=== PATIENT | female | born 1990 | race African-American/Black ===

== ENCOUNTER 2017-09-01 19:11 | Emergency (ER) | payer SELFPAY ==
[2017-09-01 19:30] VITALS: BP 119/74
[2017-09-01] MEDS ORDERED: Acetaminophen TAB* 325 MG PO ONE (21:04)
[2017-09-01] MEDS ORDERED: Polymyx/Trimethoprim OPTH* 10 ML BTL RIGHT EYE ONE (21:05)
--- NOTE | 2017-09-01 21:09 | UC ---
Ban Cummings Emily, scribed for Katie Lora MD on 09/01/17 at 205 . Shoulder Pain HPI - HPI Summary HPI Summary: This patient is a 27 year old F presenting to urgent care with 2 complaints. 1) R shoulder pain that began 1 week ago. The patient rates the pain 7/10 in severity. Symptoms aggravated by movement. Symptoms alleviated by Tylenol. Pt states she slept on her arm. pt states pain increases with movement. No paresthesia, no weakness. Pt is RHD. Pt denies elbow, wrist pain. No direct trauma. No back or neck pain 2_ Pt states right eye became irritated earlier today. STates became red and had swelling. Pt states this has improved but still feels "swollen." No vision changes. clear drainage. Pt denies nelson, vision change. Pt states uses fake eyelashes and may have "gotten something in her eye." No photophobia. No foreign body sensation. pt states washed eye with visine when started. Patient's medications reviewed this visit. - History of Current Complaint Chief Complaint: UCUpperExtremity Stated Complaint: EYE AND SHOULDER Time Seen by Provider: 09/01/17 20:35 Hx Obtained From: Patient Hx Last Menstrual Period: NOW Onset/Duration: Sudden Onset, Lasting Weeks, Still Present Timing: Constant Severity Initially: Severe Severity Currently: Severe Pain Intensity: 9 Pain Scale Used: 0-10 Numeric Character: Stiffness Aggravating Factor(s): Movement, Lifting, Flexion, Extension Alleviating Factor(s): OTC Meds Associated Signs And Symptoms: Negative: Weakness, Numbness/Tingling Related History: Dominant Hand Right - Allergies/Home Medications Allergies/Adverse Reactions: Allergies Allergy/AdvReac Type Severity Reaction Status Date / Time Penicillin V Allergy Severe Hives Verified 09/01/17 19:30 [From Penicillin VK Potassium] Home Medications: Home Medications Ibuprofen TAB* [Advil TAB*] 400 mg PO ONCE PRN 09/01/17 [History Confirmed 09/01] PMH/Surg Hx/FS Hx/Imm Hx Previously Healthy: No Other Cardiovascular History: Negative HTN Respiratory History: Asthma Other History Of: Negative For: Anticoagulant Therapy - Surgical History Surgical History: None - Family History Known Family History: Positive: None Negative: Cardiac Disease, Hypertension, Diabetes - Social History Occupation: Student Lives: With Family Alcohol Use: None Substance Use Type: None Smoking Status (MU): Former Smoker Type: Cigarettes Amount Used/How Often: once a month Have You Smoked in the Last Year: Yes When Did the Patient Quit Smoking/Using Tobacco: 8 mos ago - Immunization History Most Recent Influenza Vaccination: none Most Recent Tetanus Shot: 06/30/14 Most Recent Pneumonia Vaccination: none Review of Systems Constitutional: Other - Negative fever and chills Eyes: Drainage, Eye Redness ENT: Negative Respiratory: Negative Cardiovascular: Negative Musculoskeletal: Other: - Positive R shoulder pain Neurological: Other - Negative numbness or weakness All Other Systems Reviewed And Are Negative: Yes Physical Exam Triage Information Reviewed: Yes Appearance: Well-Appearing, No Pain Distress, Well-Nourished Vital Signs: Initial Vital Signs Temp 99.5 F 09/01/17 19:26 Pulse 89 09/01/17 19:26 Resp 20 09/01/17 19:26 BP 119/74 09/01/17 19:26 Pulse Ox 100 09/01/17 19:26 Vital Signs Reviewed: Yes Eyes: Positive: Conjunctiva Inflamed, Other: - CLEOPATRA, EOM intact and full + injected conjunctiva clear drainage no photophobia crisp fundoscopic exam ENT Exam: Normal ENT: Positive: Normal ENT inspection, Hearing grossly normal, Pharynx normal, TMs normal Dental Exam: Normal Neck exam: Normal Neck: Positive: Supple, Nontender, No Lymphadenopathy Respiratory Exam: Normal Respiratory: Positive: Chest non-tender, Lungs clear, Normal breath sounds, No respiratory distress, No accessory muscle use Cardiovascular Exam: Normal Cardiovascular: Positive: RRR, No Murmur, Pulses Normal Abdominal Exam: Normal Abdomen Description: Positive: Nontender, No Organomegaly, Soft Bowel Sounds: Positive: Present Musculoskeletal: Positive: Other: - No pain c/t/l/s Full AROM c spine + TTP right anterior shoulder at insertion + abduction >90 with PROM - somewhat limited second to pain + extension >90 with PROM- limited second to pain with active + external and internal rotation + flex/ext elbow + pronate/supinate Neurological Exam: Normal Neurological: Positive: Alert, Other: - + thumb up, a ok, finger spread, finger cross 5/5 grasp + gross sensation throughout Psychological Exam: Normal Psychological: Positive: Normal Response To Family Skin Exam: Normal Shoulder Course/Dx - Course Assessment/Plan: pt with right anterior shoulder discomfort - increased with ROM - point tender with directl pain over tendon insertion -. reviewed with pt. motrin/apap. ice. sling - shoulder and elbow exercises demonstrated. school note. 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 pf comfortable and in agreement with plan - Differential Dx/Diagnosis Provider Diagnoses: right shoulder tendonitis. conjunctivitis Discharge - Discharge Plan Condition: Stable Disposition: HOME Patient Education Materials: Tendinitis (ED), Conjunctivitis (ED) Forms: *School Release Referrals: [facility] [place] [facility] [Outside] - 1 Day Additional Instructions: - wear sling for comfort - remove your arm out of sling 3 times a day - make small circles with your shoulder and bend/straighten your elbow as demonstrated in the urgent care - apply ice (wrapped in a towel) 20 minutes at a time, 2-3 times a day - Okay to alternate ibuprofen (Advil, motrin) and tylenol every 3 hours for pain. TAke with food. Do NOT take for more than 4-5 days - for your eye - apply eye drops as instructed - apply warm, wet wash cloth 2- 3times a day - try not to rub your eye - contact the physician referral center to arrange a follow-up appointment The documentation as recorded by the Ban myles Emily accurately reflects the service I personally performed and the decisions made by me, Katie Lora MD.
== END 2017-09-01 21:38 | disposition home or self-care (01) ==
LOC: UCEAST 19:11
DX: M75.91 Shoulder lesion, unspecified, right shoulder (principal); H10.9 Unspecified conjunctivitis; J45.909 Unspecified asthma, uncomplicated; Z87.891 Personal history of nicotine dependence; Z88.0 Allergy status to penicillin
CPT/HCPCS: 99213; A9270-GY; G0463

== ENCOUNTER 2018-02-28 12:04 | Emergency (ER) | payer OTHER ==
[2018-02-28 12:31] VITALS: BP 134/62
--- NOTE | 2018-02-28 12:35 | UC ---
Hand/Wrist HPI - HPI Summary HPI Summary: Pt presents with growth to right dorsal wrist. She tells me that she has a history of ganglion cysts many years ago that were drained as she did not want them removed. For the last month she has had an increasingly painful and enlarged cyst on her right wrist. Denies injury, numbness, tingling. She works at [employer] - uses her hands often. - History Of Current Complaint Chief Complaint: UCUpperExtremity Stated Complaint: WOUND ON HAND Time Seen by Provider: 02/28/18 12:35 Hx Obtained From: Patient Hx Last Menstrual Period: unknown, had implant Onset/Duration: Gradual Onset Severity Initially: Severe Severity Currently: Severe Pain Intensity: 8 Pain Scale Used: 0-10 Numeric Character Of Pain: Dull, Aching Aggravating Factor(s): Movement - Allergies/Home Medications Allergies/Adverse Reactions: Allergies Allergy/AdvReac Type Severity Reaction Status Date / Time penicillin V Allergy Hives Verified 02/28/18 12:31 PMH/Surg Hx/FS Hx/Imm Hx Previously Healthy: Yes Respiratory History: Asthma Other History Of: Negative For: Anticoagulant Therapy - Surgical History Surgical History: None - Family History Known Family History: Positive: None Negative: Cardiac Disease, Hypertension, Diabetes - Social History Occupation: Employed Full-time Lives: With Family Alcohol Use: Occasionally Substance Use Type: None Smoking Status (MU): Former Smoker Type: Cigarettes Amount Used/How Often: once a month Have You Smoked in the Last Year: Yes When Did the Patient Quit Smoking/Using Tobacco: 8 mos ago - Immunization History Most Recent Influenza Vaccination: none Most Recent Tetanus Shot: 06/30/14 Most Recent Pneumonia Vaccination: none Review of Systems Constitutional: Negative Skin: Other - Cyst right wrist Respiratory: Negative Cardiovascular: Negative Neurovascular: Negative Musculoskeletal: Negative Neurological: Negative Psychological: Negative All Other Systems Reviewed And Are Negative: Yes Physical Exam - Summary Physical Exam Summary: GENERAL: NAD. WDWN. No pain distress. SKIN: No rashes, sores, ulcers, masses, lesions. NECK: Supple. Nontender. No lymphadenopathy. CHEST: CTAB. No r/r/w. No accessory muscle use. Breathing comfortably and in no distress. CV: RRR. Without m/r/g. Pulses intact radial and ulnar. MSK: Right wrist: dorsal aspect has 1.0cm cystic appearing nodule. Mild TTP over right wrist cyst. Strength 5/5 including electrician locomotive strength. No edema or obvious bony deformities. NEURO: Alert. Sensations intact hand and all fingers. PSYCH: Age appropriate behavior. Triage Information Reviewed: Yes Vital Signs: Initial Vital Signs Temp 98.3 F 02/28/18 12:27 Pulse 91 02/28/18 12:27 Resp 16 02/28/18 12:27 BP 134/62 02/28/18 12:27 Pulse Ox 100 02/28/18 12:27 Hand/Wrist Course/Dx - Course Course Of Treatment: Right wrist cyst. Refer to ortho - Differential Dx/Diagnosis Provider Diagnoses: Right wrist cyst Discharge - Sign-Out/Discharge Documenting (check all that apply): Discharge - Discharge Plan Condition: Stable Disposition: HOME Patient Education Materials: Ganglion Cysts (ED) Forms: *Work Release Referrals: Natalie Andres MD [Primary Care Provider] - Nusrat Ortega MD [Medical Doctor] - As Soon As Possible Additional Instructions: If you develop a fever, shortness of breath, chest pain, new or worsening symptoms - please call your PCP or go to the ED. - Billing Disposition and Condition Condition: STABLE Disposition: HOME
== END 2018-02-28 12:44 | disposition home or self-care (01) ==
LOC: UCEAST 12:04
DX: L72.3 Sebaceous cyst (principal); J45.909 Unspecified asthma, uncomplicated; Z88.0 Allergy status to penicillin; Z87.891 Personal history of nicotine dependence
CPT/HCPCS: 99211; G0463

== ENCOUNTER 2018-06-13 08:38 | Emergency (ER) | payer OTHER ==
--- NOTE | 2018-06-13 08:56 | UC ---
Skin Complaint HPI - HPI Summary HPI Summary: Pt is a 28 y/o F presenting w/ a skin rash on her left breast, left buttock, right heel, and left leg on bush. She reports having Sx for, "a while" and denies pain. Pt notes having similar Sx in the past and has been putting lotion on skin rashes. - History of Current Complaint Time Seen by Provider: 06/13/18 08:47 Stated Complaint: RASH Hx Obtained From: Patient Hx Last Menstrual Period: unknown, had implant Onset/Duration: Lasting Days - "a while ago" Timing: Constant Current Severity: None - denies pain Pain Intensity: 0 Pain Scale Used: 0-10 Numeric - 0/10 Location: Foot (Right) - by achilles tendon, Other - left breast, left buttock Aggravating Factor(s): Nothing Alleviating Factor(s): Nothing - Allergy/Home Medications Allergies/Adverse Reactions: Allergies Allergy/AdvReac Type Severity Reaction Status Date / Time penicillin V Allergy Hives Verified 06/13/18 09:10 Review of Systems Constitutional: Other - NEGATIVE: fever Musculoskeletal: Other: - skin rash on right heel, left buttock, left breast, left leg on bush All Other Systems Reviewed And Are Negative: Yes PMH/Surg Hx/FS Hx/Imm Hx Endocrine History: Other Other Endocrine History: NEGATIVE: thyroid disease, diabetes Cardiovascular History: Other Other Cardiovascular History: NEGATIVE: HTN Other Respiratory History: NEGATIVE: COPD, asthma GI/ History: Other Other GI/ History: NEGATIVE: ulcers Other History Of: Negative For: HIV, Hepatitis B, Hepatitis C, Anticoagulant Therapy - Surgical History Surgical History: None - Family History Known Family History: Negative: Cardiac Disease, Hypertension, Diabetes - Social History Alcohol Use: Occasionally Substance Use Type: None Smoking Status (MU): Former Smoker Type: Cigarettes Amount Used/How Often: once a month Have You Smoked in the Last Year: Yes When Did the Patient Quit Smoking/Using Tobacco: 8 mos ago - Immunization History Most Recent Influenza Vaccination: none Most Recent Tetanus Shot: 06/30/14 Most Recent Pneumonia Vaccination: none Physical Exam - Summary Physical Exam Summary: General: well-appearing, no pain distress Skin: Warm, color reflects adequate perfusion, dry. Skin lesion, patch, 2 cm oval with scaling edges on upper left brest, left buttock, left lower leg. Right Achilles tendon, linear crusting lesion of multiple 5 cm diameter raised areas, no drainage and erythema Head: normal Eyes: EOMI, CLEOPATRA ENT: normal Neck: supple, nontender Respiratory: CTA, breath sounds present Cardiovascular: RRR Abdomen: soft, nontender Bowel: present Musculoskeletal: normal, strength/ROM intact Neurological: sensory/motor intact, A&O x3 Psychological: affect/mood appropriate Triage Information Reviewed: Yes Vital Signs: Initial Vital Signs Temp 97.9 F 06/13/18 09:10 Pulse 84 06/13/18 09:10 Resp 18 06/13/18 09:10 BP 122/73 06/13/18 09:10 Pulse Ox 99 06/13/18 09:10 Vital Signs Reviewed: Yes Course/Dx - Diagnoses Provider Diagnoses: RING WORM. RASH Discharge - Sign-Out/Discharge Documenting (check all that apply): Patient Departure - Discharge Plan Condition: Stable Disposition: HOME Prescriptions: Clotrimazole 1 applic TOPICAL BID #28.4 gm Mupirocin 1 applic TOPICAL TID #22 gm Patient Education Materials: Tinea Corporis (ED), Acute Rash (ED) Referrals: [facility] [place] [facility] [place]] Natalie Andres MD [Primary Care Provider] - Additional Instructions: FOLLOW UP WITH YOUR DOCTOR. GET RECHECKED FOR ANY WORSENING OF YOUR CONDITION OR QUESTIONS OR CONCERNS. - Billing Disposition and Condition Condition: STABLE Disposition: Home
[2018-06-13 09:13] VITALS: BP 122/73
== END 2018-06-13 09:10 | disposition home or self-care (01) ==
LOC: UCEAST 08:38
DX: B35.9 Dermatophytosis, unspecified (principal); R21 Rash and other nonspecific skin eruption; Z88.0 Allergy status to penicillin; Z87.891 Personal history of nicotine dependence
CPT/HCPCS: 99212; G0463

== ENCOUNTER 2018-07-26 13:08 | Emergency (ER) | payer OTHER ==
[2018-07-26 13:25] VITALS: BP 112/69
[2018-07-26] MEDS ORDERED: Ketorolac INJ* 60 MG/2 ML VIAL IM ONE (13:41)
--- NOTE | 2018-07-26 13:47 | UC ---
Back Pain HPI - HPI Summary HPI Summary: This patient is a 28 year old F presenting to [facility] care accompanied by daughter with a chief complaint of left-sided back pain that began one week ago. The patient rates the pain 10/10 in severity. Symptoms aggravated by standing and movement. Symptoms alleviated by stretching and warm compresses. Patient denies dysuria, urinary frequency, diarrhea, and vaginal discharge. She reports a history of a back sprain with similar symptoms. - History of Current Complaint Chief Complaint: UCBackPain Stated Complaint: BACK PAIN Time Seen by Provider: 07/26/18 13:26 Hx Obtained From: Patient Hx Last Menstrual Period: irreg. ?: No Onset/Duration: Sudden Onset, Lasting Weeks, Still Present Timing: Constant Severity Initially: Severe Severity Currently: Severe Pain Intensity: 10 Pain Scale Used: 0-10 Numeric Back Pain: Is Discrete @ - Left-side Aggravating Factor(s): Movement, Other - Standing Alleviating Factor(s): Heat, Other - Stretching Associated Signs And Symptoms: Positive: Other - Negative dysuria, urinary frequency, diarrhea, and vaginal discharge. - Allergies/Home Medications Allergies/Adverse Reactions: Allergies Allergy/AdvReac Type Severity Reaction Status Date / Time Penicillins Allergy Hives Verified 07/26/18 13:16 PMH/Surg Hx/FS Hx/Imm Hx Previously Healthy: No Endocrine History: Other Other Endocrine History: Negative thyroid disease Respiratory History: Asthma Other History Of: Negative For: HIV, Hepatitis B, Hepatitis C, Anticoagulant Therapy - Surgical History Surgical History: None - Family History Known Family History: Negative: Cardiac Disease, Hypertension, Diabetes - Social History Occupation: Employed Full-time Lives: With Family Alcohol Use: None Substance Use Type: None Smoking Status (MU): Former Smoker Type: Cigarettes Amount Used/How Often: once a month Have You Smoked in the Last Year: Yes When Did the Patient Quit Smoking/Using Tobacco: 8 mos ago - Immunization History Most Recent Influenza Vaccination: none Most Recent Tetanus Shot: 06/30/14 Most Recent Pneumonia Vaccination: none Review of Systems Gastrointestinal: Other - Negative diarrhea Genitourinary: Other - Negative dysuria, frequency, and vaginal discharge Musculoskeletal: Other: - Positive back pain All Other Systems Reviewed And Are Negative: Yes Physical Exam - Summary Physical Exam Summary: General: well-appearing, no pain distress Skin: warm, color reflects adequate perfusion, dry Head: normal Eyes: EOMI, CLEOPATRA ENT: normal Neck: supple, nontender Respiratory: CTA, breath sounds present Cardiovascular: RRR Abdomen: soft, nontender Bowel: present Musculoskeletal: strength/ROM intact, Tender to palpation left, lateral, lower back. Pain with standing up straight. Neurological: sensory/motor intact, A&O x3 Psychological: affect/mood appropriate Triage Information Reviewed: Yes Vital Signs: Initial Vital Signs Temp 99.5 F 07/26/18 13:17 Pulse 67 07/26/18 13:17 Resp 18 07/26/18 13:17 BP 112/69 07/26/18 13:17 Pulse Ox 99 07/26/18 13:17 Vital Signs Reviewed: Yes Re-Evaluation - Re-Evaluation First Eval Re-Evaluation Time: 13:56 Change: Unchanged Comment: Discussed results and plan of care with pt Back Pain Course/Dx - Course Course Of Treatment: LOW BACK PAIN IS PROBABLE MUSCULOSKELETAL STRAIN; RX IBUPROFEN, MUSCLE RELAXERS AND STRETCHES. NO UTI SX, POSITIVE HEMATURIA AND PYURIA; WILL RX BACTRIM. NO CT AVAILABLE IN CLINIC TODAY TO EVALUATE LEFT FLANK FOR KIDNEY STONE. NO HX KIDNEY STONE, NO DYSURIA, NO ABD PAIN, PAIN WORSE WITH MOVEMENT SO, KIDNEY STONE LESS LIKELY. I DISCUSSED THAT AN UTI AND KIDNEY STONE CAN BE DANGEROUS AND SHE NEEDS TO GO IMMEDIATELY TO THE ED IF HER CONDITION WORSENS. THE PATIENT AGREES. - Differential Dx/Diagnosis Provider Diagnoses: LOW BACK PAIN. LEFT FLANK PAIN. HEMATURIA. PYURIA Discharge - Sign-Out/Discharge Documenting (check all that apply): Patient Departure All imaging exams completed and their final reports reviewed: No Studies - Discharge Plan Condition: Stable Disposition: HOME Prescriptions: Cyclobenzaprine TAB* [Flexeril 10 MG TAB*] 10 mg PO TID PRN #15 tab MDD 3 PRN Reason: Pain Ibuprofen TAB* [Motrin TAB* 600 MG] 600 mg PO Q6H PRN #30 tab PRN Reason: Pain Sulfamethox/Trimethoprim DS* [Bactrim DS 800/160 TAB*] 1 tab PO BID #20 tab Patient Education Materials: Urinary Tract Infection in Women (ED), Acute Low Back Pain (ED), Flank Pain (ED), Lower Back Exercises (ED) Referrals: Natalie Andres MD [Primary Care Provider] - Additional Instructions: FOLLOW UP WITH YOUR DOCTOR. IF YOUR PAIN DOES NOT IMPROVE OR WORSENS, YOU WILL NEED TO BE CHECKED FOR A KIDNEY STONE WITH A CT SCAN. THIS CAN BE DONE AT THE EMERGENCY DEPARTMENT. IF YOU HAVE BOTH A UTI AND A KIDNEY STONE, YOU CAN BECOME DANGEROUSLY ILL VERY QUICKLY SO, IF YOU FEEL ILL, GO DIRECTLY TO THE EMERGENCY DEPARTMENT. GO TO THE EMERGENCY DEPARTMENT FOR ANY WORSENING OF YOUR CONDITION; FEVER, PAIN , YOU FEEL ILL OR QUESTIONS OR CONCERNS. - Billing Disposition and Condition Condition: STABLE Disposition: Home - Attestation Statements Document Initiated by Scribe: Yes Documenting Scribe: Karie Cevallos Provider For Whom Scribe is Documenting (Include Credential): Alexi Salinas MD Scribe Attestation: I, Karie Cevallos, scribed for Alexi Salinas MD on 07/26/18 at 1424. Scribe Documentation Reviewed: Yes Provider Attestation: The documentation as recorded by the scribeKarie accurately reflects the service I personally performed and the decisions made by me, Alexi Salinas MD
--- NOTE | 2018-07-28 15:44 | UC ---
- Progress Note Progress Note: please notify pt no UTI Stop antibiotic Re-Evaluation - Re-Evaluation First Eval Re-Evaluation Time: 13:56 Change: Unchanged Comment: Discussed results and plan of care with pt Discharge - Sign-Out/Discharge Documenting (check all that apply): Post-Discharge Follow Up All imaging exams completed and their final reports reviewed: No Studies - Discharge Plan Condition: Stable Disposition: HOME Prescriptions: Cyclobenzaprine TAB* [Flexeril 10 MG TAB*] 10 mg PO TID PRN #15 tab MDD 3 PRN Reason: Pain Ibuprofen TAB* [Motrin TAB* 600 MG] 600 mg PO Q6H PRN #30 tab PRN Reason: Pain Sulfamethox/Trimethoprim DS* [Bactrim DS 800/160 TAB*] 1 tab PO BID #20 tab Patient Education Materials: Urinary Tract Infection in Women (ED), Acute Low Back Pain (ED), Flank Pain (ED), Lower Back Exercises (ED) Referrals: Natalie Andres MD [Primary Care Provider] - Additional Instructions: FOLLOW UP WITH YOUR DOCTOR. IF YOUR PAIN DOES NOT IMPROVE OR WORSENS, YOU WILL NEED TO BE CHECKED FOR A KIDNEY STONE WITH A CT SCAN. THIS CAN BE DONE AT THE EMERGENCY DEPARTMENT. IF YOU HAVE BOTH A UTI AND A KIDNEY STONE, YOU CAN BECOME DANGEROUSLY ILL VERY QUICKLY SO, IF YOU FEEL ILL, GO DIRECTLY TO THE EMERGENCY DEPARTMENT. GO TO THE EMERGENCY DEPARTMENT FOR ANY WORSENING OF YOUR CONDITION; FEVER, PAIN , YOU FEEL ILL OR QUESTIONS OR CONCERNS. - Billing Disposition and Condition Condition: STABLE Disposition: Home
== END 2018-07-26 14:26 | disposition home or self-care (01) ==
LOC: UCEAST 13:08
DX: M54.5 Low back pain (principal); Z88.0 Allergy status to penicillin; Z87.891 Personal history of nicotine dependence; R10.9 Unspecified abdominal pain; R31.9 Hematuria, unspecified; N39.0 Urinary tract infection, site not specified
CPT/HCPCS: 81003; 84702; 87086; 96372; 99212; G0463; J1885

== ENCOUNTER 2019-10-10 20:22 | Emergency (ER) | payer OTHER ==
[2019-10-10 20:36] VITALS: BP 150/60
[2019-10-10] MEDS ORDERED: Ketorolac INJ* 30 MG/ML 1 ML VIAL IM ONE (20:40)
--- NOTE | 2019-10-10 20:47 | UC ---
Back Pain HPI - HPI Summary HPI Summary: 29 year old female with chronic low back pain. She states she thinks she slept the wrong way. She denies any saddle anesthesia and no numbnmess or tingling in her arms or legs. - History of Current Complaint Chief Complaint: UCBackPain Stated Complaint: LOW BACK PAIN/THORACIC BACK PAIN Time Seen by Provider: 10/10/19 20:29 Hx Obtained From: Patient Hx Last Menstrual Period: August- has implant in arm ?: No Onset/Duration: Gradual Onset Timing: Constant Severity Initially: Moderate Severity Currently: Moderate Pain Intensity: 10 Character: Dull, Aching Aggravating Factor(s): Movement, Lifting, Bending Alleviating Factor(s): Rest Associated Signs And Symptoms: Positive: Negative - No saddle anesthesia. Negative: Weakness, Numbness, Tingling, Abdominal Pain, Flank Pain, Bladder Incontinence, Bowel Incontinence - Allergies/Home Medications Allergies/Adverse Reactions: Allergies Allergy/AdvReac Type Severity Reaction Status Date / Time Penicillins Allergy Hives Verified 10/10/19 20:36 Home Medications: Home Medications NK [No Home Medications Reported] 10/10/19 [History Confirmed 10/10/19] PMH/Surg Hx/FS Hx/Imm Hx Previously Healthy: Yes Respiratory History: Asthma Other History Of: Negative For: HIV, Hepatitis B, Hepatitis C, Anticoagulant Therapy - Surgical History Surgical History: None - Family History Known Family History: Negative: Cardiac Disease, Hypertension, Diabetes - Social History Alcohol Use: None Substance Use Type: None Smoking Status (MU): Current Some Day Smoker Type: Cigarettes Amount Used/How Often: once a month Have You Smoked in the Last Year: Yes When Did the Patient Quit Smoking/Using Tobacco: 8 mos ago - Immunization History Most Recent Influenza Vaccination: none Most Recent Tetanus Shot: 06/30/14 Most Recent Pneumonia Vaccination: none Review of Systems All Other Systems Reviewed And Are Negative: Yes Musculoskeletal: Positive: Other: - Low back pain which is a chronic problem but exacerbated when she "slept the wrong way" Is Patient Immunocompromised?: No Physical Exam Triage Information Reviewed: Yes Appearance: Well-Appearing, No Pain Distress, Well-Nourished Vital Signs: Initial Vital Signs Temp 100.1 F 10/10/19 20:30 Pulse 105 10/10/19 20:30 Resp 18 10/10/19 20:30 BP 150/60 10/10/19 20:30 Pulse Ox 99 10/10/19 20:30 Vital Signs Reviewed: Yes Musculoskeletal: Positive: Strength Intact, ROM Intact, Other: - Negative SLR, mild pain on palpation lower paraspinal muscles. No bruising, erythema, deformity or swelling. Neurological Exam: Normal Neurological: Positive: Alert, Muscle Tone Normal Psychological Exam: Normal Skin Exam: Normal Back Pain Course/Dx - Course Course Of Treatment: Toradol 30 mg injection given. 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 Apply heat to the sore area. May continue to take Motrin every 8 hours for pain. Follow-up with her primary care provider if no improvement in 3 or 4 days. - Billing Disposition and Condition Condition: FAIR Disposition: Home - Attestation Statements Provider Attestation: Per institutional requirements, I have reviewed the chart, however, I was not consulted specifically or made aware of this patient by the midlevel provider. I did not personally evaluate, interact with , or disposition this patient.
== END 2019-10-10 20:56 | disposition home or self-care (01) ==
LOC: UCCORT 20:22
DX: S39.012A Strain of muscle, fascia and tendon of lower back, initial encounter (principal); X58.XXXA Exposure to other specified factors, initial encounter; Y93.84 Activity, sleeping; Y92.9 Unspecified place or not applicable; Z88.0 Allergy status to penicillin; Z87.891 Personal history of nicotine dependence
CPT/HCPCS: 96372; 99211; G0463; J1885

== ENCOUNTER 2019-11-26 15:45 | Emergency (ER) | payer OTHER ==
[2019-11-26 16:27] VITALS: BP 144/97
--- NOTE | 2019-11-26 16:36 | UC ---
FLU HPI - HPI Summary HPI Summary: 29 yo female presents with flu-like symptoms. She tells me that her daughter was diagnosed with the flu 2 days ago. This morning pt began to feel feverish, body aches, fatigue, and dry cough. She took OTC cold medication with little relief. She works at [employer] and did a flu swab that was positive for flu B. She is here tonight asking for tamiflu and a work note. Denies SOB, chest pain, abdominal pain, n/v - History of Current Complaint Chief Complaint: UCGeneralIllness Stated Complaint: FEVER, AND CHEST CONGESTION Time Seen by Provider: 11/26/19 16:35 Hx Obtained From: Patient Hx Last Menstrual Period: nexplanon Onset/Duration: Sudden Onset Severity Currently: Moderate Severity Initially: Moderate Pain Intensity: 8 Pain Scale Used: 0-10 Numeric - Allergy/Home Medications Allergies/Adverse Reactions: Allergies Allergy/AdvReac Type Severity Reaction Status Date / Time Penicillins Allergy Hives Verified 11/26/19 16:27 Home Medications: Home Medications D-Methorphan/PE/Acetaminophen [Cold Multi-Symptom Caplet] 11/26/19 [History] PMH/Surg Hx/FS Hx/Imm Hx Respiratory History: Asthma Other History Of: Negative For: HIV, Hepatitis B, Hepatitis C, Anticoagulant Therapy - Surgical History Surgical History: None - Family History Known Family History: Negative: Cardiac Disease, Hypertension, Diabetes - Social History Occupation: Employed Full-time Lives: With Family Alcohol Use: None Substance Use Type: None Smoking Status (MU): Former Smoker Type: Cigarettes Amount Used/How Often: once a month Have You Smoked in the Last Year: Yes When Did the Patient Quit Smoking/Using Tobacco: 8 mos ago - Immunization History Most Recent Influenza Vaccination: none Most Recent Tetanus Shot: 06/30/14 Most Recent Pneumonia Vaccination: none Review of Systems All Other Systems Reviewed And Are Negative: No Constitutional: Positive: Fever, Fatigue, Other - Body aches Skin: Positive: Negative Eyes: Positive: Negative ENT: Positive: Negative Respiratory: Positive: Cough Cardiovascular: Positive: Negative Gastrointestinal: Positive: Negative Neurological: Positive: Negative Psychological: Positive: Negative Physical Exam - Summary Physical Exam Summary: GENERAL: NAD. WDWN. No pain distress. SKIN: No rashes, sores, lesions, or open wounds. HEENT: Head: AT/NC Eyes: EOM intact. Conjunctiva clear without inflammation or discharge. Ears: Hearing grossly normal. TMs intact, no bulging, erythema, or edema. Nose: Nasal mucosa pink and moist. NTTP maxillary and frontal sinus. Throat: Posterior oropharynx without exudates, erythema, or tonsillar enlargement. Uvula midline. NECK: Supple. Nontender. No lymphadenopathy. CHEST: CTAB. No accessory muscle use. Breathing comfortably and in no distress. CV: RRR. Pulses intact. Cap refill <2seconds NEURO: Alert. PSYCH: Age appropriate behavior. Triage Information Reviewed: Yes Vital Signs: Initial Vital Signs Temp 102.4 F 11/26/19 16:22 Pulse 88 11/26/19 16:22 Resp 16 11/26/19 16:22 BP 144/97 11/26/19 16:22 Pulse Ox 100 11/26/19 16:22 Laboratory Tests 11/26/19 16:45 Influenza B (Rapid) Positive A Vital Signs Reviewed: Yes Flu Course/Dx - Course Course Of Treatment: POC flu positive. Rx for tamiflu and will refill her albuterol inhaler as she is out of this and does have a hx of asthma. - Differential Dx/Diagnosis Provider Diagnosis: Influenza Discharge ED - Sign-Out/Discharge Documenting (check all that apply): Patient Departure All imaging exams completed and their final reports reviewed: No Studies - Discharge Plan Condition: Stable Disposition: HOME Prescriptions: Albuterol HFA INHALER* [Ventolin HFA Inhaler*] 1 puff INH Q6H PRN #1 mdi PRN Reason: Sob/Wheezing Oseltamivir CAP* [Tamiflu CAP*] 75 mg PO BID #10 cap Patient Education Materials: Influenza (ED) Forms: *Work Release Referrals: Shahid Fernandez MD [Primary Care Provider] - Additional Instructions: If you develop a fever, shortness of breath, chest pain, new or worsening symptoms - please call your PCP or go to the ED immediately. Your blood pressure was high at todays visit. Please see your primary provider within 4 weeks for recheck and re-evaluation. Most people with the flu recover within one to two weeks without treatment. However, serious complications of the flu can occur. Go to the ER immediately if you: -- You feel short of breath or have trouble breathing -- You have pain or pressure in your chest or stomach -- You have signs of being dehydrated, such as dizziness when standing or not passing urine -- You feel confused -- You cannot stop vomiting or you cannot drink enough fluids There are several groups of people who are at increased risk for flu complications. These include women, young children (<5 years of age and especially <2 years of age), people older than 65 years of age, and people with certain diseases such as chronic lung disease (such as asthma), heart disease, diabetes, immunosuppressing conditions (such as HIV infection or transplantation), and some other diseases. Treat symptoms Treating the symptoms of influenza can help you to feel better but will not make the flu go away faster. -- Rest until the flu is fully resolved, especially if the illness has been severe. -- Fluids Drink enough fluids so that you do not become dehydrated. One way to tax appraiser if you are drinking enough is to look at the color of your urine. Normally, urine should be light yellow to nearly colorless. If you are drinking enough, you should pass urine every three to five hours. -- Acetaminophen (sample brand name: Tylenol) can relieve fever, headache, and muscle aches. Aspirin and medicines that include aspirin (eg, bismuth subsalicylate [sample brand name: Pepto-Bismol]) are not recommended for children under 18 because aspirin can lead to a serious disease called Arvin syndrome. -- Cough medicines are not usually helpful; cough usually resolves without treatment. We do not recommend cough or cold medicine for children under age 6 years. Antiviral treatment Antiviral medicines can be used to treat or prevent influenza. When used as a treatment, the medicine does not eliminate flu symptoms, although it can reduce the severity and duration of symptoms by about one day. Not every person with influenza needs an antiviral medicine, but some people do; the decision is based upon several factors. If you are severely ill and/or have risk factors for developing complications of influenza, you will need an antiviral agent. People who are only mildly ill and have no risk factors for complications usually do not need to be treated with antiviral medication. - Billing Disposition and Condition Condition: STABLE Disposition: Home
[2019-11-26 16:49] LABS: Influenza B Molecular POSITIVE (Negative)
== END 2019-11-26 17:22 | disposition home or self-care (01) ==
LOC: UCEAST 15:45
DX: J11.1 Influenza due to unidentified influenza virus with other respiratory manifestations (principal); J45.909 Unspecified asthma, uncomplicated; R53.83 Other fatigue; Z88.0 Allergy status to penicillin; Z87.891 Personal history of nicotine dependence
CPT/HCPCS: 99212; G0463